=== PATIENT | male | born 1950 | race Two or more races ===

== ENCOUNTER 2024-05-11 06:39 | Day surgery (SDC) | payer OTHER ==
[~2024-05-11] VITALS: Ht 180.3 cm; Wt 111.1 kg
[2024-05-11] VITALS (10 sets, daily range): BP systolic 101–156; BP diastolic 57–112; PULSE 88–96; RESP 11–19; TEMP 97.9; O2SAT 94–98
[~2024-05-11 06:39] MED LIST: ALB2.5IS NEB; CILO100T3 PO; ERGO1CAP23 PO; FENO134C16 PO; IBUP-1456 PO; LOSA-534 PO
[2024-05-11] MEDS ORDERED: IODIXANOL 320MG/ML 100ML BTL IV ONE (08:05)
[2024-05-11] MEDS ORDERED: MIDAZOLAM HCL 2MG/2ML 2ml VIAL (1mg/ml) ONE (08:11)
[2024-05-11] MEDS ORDERED: fentaNYL CITRATE 100 MCG/2 ML VL ONE (08:11)
[2024-05-11] MEDS ORDERED: LIDOCAINE 2%HCL (LOCAL ANESTH.) INJ 20ML MDV ONE ×2 (08:11→09:00)
[2024-05-11] MEDS ORDERED: SODIUM CHL 0.9% 50 ML ONE ×2 (08:14→09:26)
[2024-05-11] MEDS ORDERED: ANGIOMAX 250 MG VIAL IV ONE ×2 (08:14→09:26)
[2024-05-11] MEDS ORDERED: CLOPIDOGREL BISULFATE 75 MG TAB ONE (09:38)
--- NOTE | 2024-05-11 10:58 | DVHOP ---
DATE OF SURGERY: 05/11/2024 PROCEDURE PERFORMED: Angiographic evaluation of lower extremities. Angioplasty, stenting and intravascular ultrasound with shockwave therapy of the right proximal iliac. 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 DESCRIPTION OF PROCEDURE: Prior local anesthesia with 2% lidocaine to the left groin under fluoroscopic and ultrasound guidance, we were able to gain access into the left femoral artery through which a 6-[place] sheath was then passed and an angiographic evaluation of the lower extremity was performed. We then took a RIM catheter and passed it into the right and performed angiographic evaluation. There was a 95% stenosis of the right proximal iliac. There was notable calcification and complex lesion. The mid and distal segments of the iliacs are normal. The SFA, profunda, tibioperoneal trunk, anterior and posterior tibial arteries are normal in the right lower extremity. The left lower extremity shows no significant disease in the iliac, femoral and superficial femoral artery, profunda, popliteal, tibioperoneal trunk, anterior and posterior tibial arteries are normal. We then proceeded to access the right femoral artery with an 8-[place] sheath. We were then able to pass a support wire, crossed the area of stenosis and placed a shockwave balloon 8 x 60 mm into the proximal iliac and we performed a total of approximately 9 treatments. There was notable aperture of the proximal iliac. We then placed a [employer] Innova self-expanding stent, post-dilated with the same 8 mm balloon/shockwave. There was excellent antegrade flow without thrombus formation and/or dissection. IMPRESSION: Successful percutaneous transluminal angioplasty, stenting and lithotripsy of proximal right iliac. No other significant stenosis in the arteries of the lower extremities. Three-vessel runoff to the level of the ankle in both lower extremities without critical lesions. RECOMMENDATIONS: Medical therapy is warranted. Continue risk factor modification. Plavix, aspirin, Lipitor will be continued. MD SHARLENE Nieto/MERISSA/DAJA TID: [id number] RECEIPT: [id number]
== END 2024-05-11 12:29 | disposition home or self-care (01) ==
LOC: CATH 06:39
PROVIDERS: ATTEND Internal Medicine
DX: I70.201 Unspecified atherosclerosis of native arteries of extremities, right leg (principal)
CPT/HCPCS: 75716; C1725; C1769; C1876; C1887; C1894; C9765; J0583; J1644; J2250; J3010; J7030; Q9967; 99152; 99153